=== PATIENT | male | born 1995 | race Caucasian/White ===

== ENCOUNTER 2017-04-19 16:16 | Emergency (ER) | payer OTHER ==
[~2017-04-19] VITALS: Ht 177.8 cm; Wt 70.3 kg
== END 2017-04-19 17:41 | disposition home or self-care (01) ==
LOC: ER 16:16
DX: B88.2 Other arthropod infestations (principal)

== ENCOUNTER 2018-04-23 10:16 | Outpatient (CLI) | payer OTHER | END 2018-04-23 10:25 | disposition home or self-care (01) | LOC: RAD 501 10:16 | DX: M41.20 Other idiopathic scoliosis, site unspecified (principal) ==

== ENCOUNTER → 2018-04-23 | Outpatient (CLI) | payer OTHER | END | disposition home or self-care (01) | LOC: MRI 09:59 | DX: M41.20 Other idiopathic scoliosis, site unspecified (principal); M54.17 Radiculopathy, lumbosacral region | CPT/HCPCS: 72148 ==